=== PATIENT | female | born 2005 | race Two or more races ===

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

== ENCOUNTER 2023-02-05 11:40 | Emergency (ER) | payer OTHER ==
[~2023-02-05] VITALS: Ht 167.6 cm; Wt 70.5 kg
[2023-02-05 17:24] VITALS: BP 122/83
== END 2023-02-05 17:26 | disposition home or self-care (01) ==
LOC: ER 11:40
DX: S09.90XA Unspecified injury of head, initial encounter (principal); R51.9 Headache, unspecified; R10.2 Pelvic and perineal pain; Z79.899 Other long term (current) drug therapy; V89.2XXA Person injured in unspecified motor-vehicle accident, traffic, initial encounter; Y93.89 Activity, other specified; Y92.89 Other specified places as the place of occurrence of the external cause; Y99.8 Other external cause status
CPT/HCPCS: 36415; 70450; 72125; 84702

== ENCOUNTER 2023-10-09 14:13 | Inpatient (IN) | payer BC, OTHER ==
[~2023-10-09] VITALS: Ht 167.6 cm; Wt 60.2 kg
[~2023-10-09 14:13] MED LIST changes: -CEPH-322 PO; +CEPH250C PO
[2023-10-09] MEDS ORDERED: SODIUM CHLORIDE 0.9% 1,000 ML IV ONE ×2 (15:00→19:30)
[2023-10-09 15:04] LABS: Basophils # (auto) 0 10 ^3/uL (0-0.2); Basophils % (auto) 0.6 % (0.0-2.0); Eosinophils # (auto) 0.1 10 ^3/uL (0-0.8); Eosinophils % (auto) 2.5 % (0.0-7.0); Hematocrit 44.9 % (36.0-46.0); Hemoglobin 14.7 g/dL (12.2-16.2); Lymphocytes # (auto) 0.8 10 ^3/uL (0.4-5.4); Lymphocytes % (auto) 15.9 % (10.0-50.0); Mean Corpuscular Hemoglobin 31.6 pg (28.0-32.0); Mean Corpuscular Hgb Conc. 32.8 g/dL (32.0-36.0); Mean Corpuscular Volume 96.5 fL (80.0-100.0); Monocytes # (auto) 0.7 10 ^3/uL (0-1.3); Monocytes % (auto) 13.3 % (0.0-12.0); Neutrophils # (auto) 3.5 10 ^3/uL (1.6-8.6); Neutrophils % (auto) 67.7 % (37.0-80.0); Nucleated Red Blood Cells % 0.1 %; Red Blood Cells 4.65 10^6/uL (4.0-5.20); Red Cell Distribution Width 13.9 % (11.8-14.3); White Blood Cell 5.2 10^3/uL (4.4-10.8)
[2023-10-09 15:21] LABS: Alanine Aminotransferase 18 U/L (7-40); Albumin 4.7 g/dL (3.2-4.8); Alkaline Phosphatase 154 U/L (46-116); Anion Gap 16 (5-15); Aspartate Aminotransferase 13 U/L (13-40); Bilirubin, Total 0.5 mg/dL (0.2-1.0); Calcium 9.3 mg/dL (8.7-10.4); Carbon Dioxide 16 mmol/L (20-30); Chloride 97 mmol/L (98-107); Sodium 129 mmol/L (136-145); Total Protein 7.1 g/dL (5.7-8.2)
[2023-10-09 15:53] LABS: Urine Bacteria NONE SEEN /hpf (None Seen); Urine Blood Negative /uL (Negative); Urine Clarity Clear (Clear); Urine Color Colorless (Yellow); Urine Protein, UAD Negative (Negative); Urine Specific Gravity 1.034 (1.001-1.035); Urine Urobilinogen Normal (Negative); Urine WBC <1 /hpf (0 - 5)
[2023-10-09 15:59] LABS: BUN/Creatinine Ratio 5.1 (10.0-20.0); Blood Urea Nitrogen < 5 mg/dL (9-23)
[2023-10-09 16:13] LABS: Glucose 649 mg/dL (74-106)
[2023-10-09] MEDS ORDERED: InsuLIN REG 1unit/0.01ml Soln (100units/ml) IV ONE (16:15)
[2023-10-09] MEDS ORDERED: DEXTROSE (50%) 50ML SYRG IV PRN (19:30)
[2023-10-09] MEDS ORDERED: MAGNESIUM SULFATE 1GM/100ML 200 ML IV ONE (19:30)
[2023-10-09] MEDS: SODIUM CHLORIDE 0.9% 1,000 ML IV SCH (19:30)
[2023-10-09] MEDS ORDERED: NITROGLYCERIN 0.4 MG SL TAB SL PRN (19:30)
[2023-10-09] MEDS ORDERED: POTASSIUM CHL 20MEQ/100ML 200 ML IV PRN (19:30)
[2023-10-09] MEDS ORDERED: POTASSIUM CHL 20MEQ/100ML 100 ML IV PRN (19:30)
[2023-10-09] MEDS ORDERED: MORPHINE SULFATE INJ 2 MG/ml SYRG IV PRN (19:30)
[2023-10-09] MEDS ORDERED: FLUCONAZOLE 200MG/100ML 100 ML IV ONE (19:30)
[2023-10-09] MEDS ORDERED: INSULIN DRIP 100 UNIT/100ML 100 ML IV SCH (19:30)
[2023-10-09] MEDS ORDERED: INSULIN LANTUS (GLARGINE) 1 /0.01ml (100units/ml) SC ONE (19:30)
[2023-10-09 19:51] LABS: Magnesium 1.8 mg/dL (1.6-2.6)
[2023-10-09 19:53] LABS: Phosphorus 3.3 mg/dL (2.4-5.1)
[2023-10-09 21:15] VITALS: TEMP 98.5
[2023-10-09 21:30] VITALS: PULSE 92; RESP 19; O2SAT 100
[2023-10-09] MEDS: ACCU-CHEK COMFORT CURVE STRIP VI SCH ×3 (21:56→22:53)
[2023-10-10] MEDS: ACCU-CHEK COMFORT CURVE STRIP VI SCH ×8 (00:14→12:19)
[2023-10-10] MEDS: SODIUM CHLORIDE 0.9% 1,000 ML IV SCH ×2 (02:18→08:59)
[2023-10-10 04:30] LABS: Alanine Aminotransferase 14 U/L (7-40); Albumin 4.3 g/dL (3.2-4.8); Alkaline Phosphatase 124 U/L (46-116); Anion Gap 10 (5-15); Carbon Dioxide 21 mmol/L (20-30); Glucose 112 mg/dL (74-106); Potassium 3.4 mmol/L (3.5-5.1); Sodium 139 mmol/L (136-145)
[2023-10-10 04:31] LABS: Aspartate Aminotransferase 8 U/L (13-40); Bilirubin, Total 0.4 mg/dL (0.2-1.0); Total Protein 6.3 g/dL (5.7-8.2)
[2023-10-10 04:42] LABS: Basophils # (auto) 0 10 ^3/uL (0-0.2); Basophils % (auto) 0.6 % (0.0-2.0); Eosinophils # (auto) 0.1 10 ^3/uL (0-0.8); Eosinophils % (auto) 2.2 % (0.0-7.0); Hematocrit 40.8 % (36.0-46.0); Hemoglobin 13.6 g/dL (12.2-16.2); Lymphocytes # (auto) 1.5 10 ^3/uL (0.4-5.4); Lymphocytes % (auto) 23.3 % (10.0-50.0); Mean Corpuscular Hemoglobin 31.2 pg (28.0-32.0); Mean Corpuscular Hgb Conc. 33.3 g/dL (32.0-36.0); Mean Corpuscular Volume 93.6 fL (80.0-100.0); Monocytes # (auto) 0.9 10 ^3/uL (0-1.3); Monocytes % (auto) 14.4 % (0.0-12.0); Neutrophils # (auto) 3.8 10 ^3/uL (1.6-8.6); Neutrophils % (auto) 59.5 % (37.0-80.0); Nucleated Red Blood Cells % 0.2 %; Red Blood Cells 4.36 10^6/uL (4.0-5.20); White Blood Cell 6.3 10^3/uL (4.4-10.8)
[2023-10-10 04:43] LABS: Chloride 108 mmol/L (98-107)
[2023-10-10 04:44] LABS: BUN/Creatinine Ratio 9.8 (10.0-20.0); Blood Urea Nitrogen < 5 mg/dL (9-23)
[2023-10-10] MEDS ORDERED: DEXTROSE (50%) 50ML SYRG IV PRN (06:30)
[2023-10-10 07:30] VITALS: PULSE 70; RESP 17; O2SAT 96
[2023-10-10] MEDS: InsuLIN REG 1unit/0.01ml Soln (100units/ml) SC SCH ×2 (08:29→12:34)
[2023-10-10] MEDS ORDERED: INSULIN LANTUS (GLARGINE) 1 /0.01ml (100units/ml) SC SCH (10:00)
[2023-10-10] MEDS ORDERED: FLUCONAZOLE 200MG/100ML 100 ML IV SCH (10:00)
[2023-10-10] MEDS ORDERED: FLUC100T PO (11:08)
[2023-10-10] MEDS ORDERED: [UNRECOGNIZED DRUG - CODE] PO (11:08)
[2023-10-10] MEDS ORDERED: LANC-268 XX (11:08)
[2023-10-10] MEDS ORDERED: BLOO1KIT60 XX (11:08)
[2023-10-10] MEDS ORDERED: INSU100I51 SC (11:08)
[2023-10-10] MEDS ORDERED: INSLANTI SC (11:08)
[2023-10-10] MEDS ORDERED: INSU-567 XX (11:08)
[2023-10-10 13:00] VITALS: BP 114/79; PULSE 73; RESP 16; O2SAT 98
== END 2023-10-10 14:12 | disposition home or self-care (01) | DRG 638 ==
LOC: ER 14:13 → TELE 19:20
PROVIDERS: ADMIT Nurse Practitioner Acute Care; ATTEND Nurse Practitioner Acute Care
DX: E11.10 Type 2 diabetes mellitus with ketoacidosis without coma (principal); N39.0 Urinary tract infection, site not specified
CPT/HCPCS: 36415; 80053; 81001; 81025; 82010; 82962; 83036; 83735; 83930; 84100; 85025; 87086; G0378; J1450; J1815; J3480